=== PATIENT | male | born 1990 | race Caucasian/White ===

== ENCOUNTER 2023-10-30 19:24 | Emergency (ER) | payer OTHER, SELFPAY ==
[2023-10-30 19:29] VITALS: BP 110/81
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
== END 2023-10-30 23:37 | disposition home or self-care (01) ==
LOC: EMR 19:24
PROVIDERS: EMERGENCY PHYSICIAN Emergency Medicine
DX: S01.511A Laceration without foreign body of lip, initial encounter (principal); W22.8XXA Striking against or struck by other objects, initial encounter; F41.8 Other specified anxiety disorders
CPT/HCPCS: 99282; 12011